=== PATIENT | female | born 1960 | race Caucasian/White ===

== ENCOUNTER 2016-08-07 09:51 | Emergency (ER) | payer MEDICAID ==
[~2016-08-07] VITALS: Ht 172.7 cm; Wt 80.8 kg
[~2016-08-07 09:51] MED LIST: ASPI-496 PO; ATOR80TA PO; LEVO112T2 PO; LISI-167 PO; METO50TA82 PO
[2016-08-07] MEDS ORDERED: MECLIZINE CHEWABLE 25 MG TAB ONE (11:18)
[2016-08-07] MEDS ORDERED: SODIUM CHLORIDE 0.9% 1,000ML IVBOLUS ONE (11:30)
[2016-08-07] MEDS ORDERED: MECLIZINE CHEWABLE 25 MG TAB PO ONE (11:30)
[2016-08-07] MEDS ORDERED: SODIUM CHLORIDE FLUSH 10ML SYR IVF ONE (11:30)
[2016-08-07 11:49] LABS: BLOOD UREA NITROGEN 15 mg/dL (7-18)
[2016-08-07 13:02] VITALS: BP 121/61
== END 2016-08-07 13:05 | disposition home or self-care (01) ==
LOC: ED 11:16
DX: M71.21 Synovial cyst of popliteal space [Baker], right knee (principal); R42 Dizziness and giddiness; I10 Essential (primary) hypertension; I48.91 Unspecified atrial fibrillation; F17.200 Nicotine dependence, unspecified, uncomplicated
CPT/HCPCS: 36415; 80048; 81003; 82040; 85025; 93005; 93971; 96360; 99285; J7030

== ENCOUNTER 2016-09-23 12:38 | Emergency (ER) | payer MEDICAID ==
[~2016-09-23] VITALS: Ht 172.7 cm; Wt 79.8 kg
[2016-09-23 12:40] VITALS: BP 111/65
[2016-09-23] MEDS ORDERED: IBUPROFEN 200 MG TABLET PO ONE (13:00)
[2016-09-23] MEDS ORDERED: IBUPROFEN 200 MG TABLET ONE (13:50)
[2016-09-23] MEDS ORDERED: HYDROcodone/APAP 5/325 TABLET PO ONE (14:30)
[2016-09-23] MEDS ORDERED: HYDROcodone/APAP 5/325 TABLET ONE (14:42)
== END 2016-09-23 15:19 | disposition home or self-care (01) ==
LOC: ED 14:35
DX: S22.41XA Multiple fractures of ribs, right side, initial encounter for closed fracture (principal); I48.91 Unspecified atrial fibrillation; I10 Essential (primary) hypertension; F17.210 Nicotine dependence, cigarettes, uncomplicated; X58.XXXA Exposure to other specified factors, initial encounter; Y93.89 Activity, other specified; Y92.89 Other specified places as the place of occurrence of the external cause; Y99.8 Other external cause status
CPT/HCPCS: 99284

== ENCOUNTER 2017-02-21 13:31 | Emergency (ER) | payer MEDICAID ==
[~2017-02-21] VITALS: Ht 172.7 cm; Wt 78.0 kg
[2017-02-21 14:30] LABS: PATH.CAST-FLAG NOT PRESENT; SPERM-FLAG NOT PRESENT; SRC-FLAG NOT PRESENT; XTAL-FLAG NOT PRESENT; YLC-FLAG NOT PRESENT
[2017-02-21 14:30] LABS: HEMATOCRIT 41.8 % (34.6-47.8); WHITE BLOOD COUNT 6.9 x10^3/uL (3.4-10)
[2017-02-21 14:41] LABS: ASPARTATE AMINO TRANSFERASE 27 U/L (15-37); BLOOD UREA NITROGEN 14 mg/dL (7-18)
[2017-02-21 15:25] VITALS: BP 128/65
== END 2017-02-21 15:27 | disposition home or self-care (01) ==
LOC: ED 14:03
DX: L24.9 Irritant contact dermatitis, unspecified cause (principal); E03.9 Hypothyroidism, unspecified; E78.5 Hyperlipidemia, unspecified; M19.90 Unspecified osteoarthritis, unspecified site; I10 Essential (primary) hypertension; I48.91 Unspecified atrial fibrillation; Z88.1 Allergy status to other antibiotic agents
CPT/HCPCS: 36415; 80053; 81001; 85025; 99283; 99284

== ENCOUNTER → 2017-04-20 | Outpatient (CLI) | payer MEDICAID | END | disposition home or self-care (01) | LOC: CVU 08:24 | PROVIDERS: ATTEND Internal Medicine Cardiovascular Disease | DX: I07.1 Rheumatic tricuspid insufficiency (principal); I10 Essential (primary) hypertension; I48.91 Unspecified atrial fibrillation; F17.200 Nicotine dependence, unspecified, uncomplicated; Z98.890 Other specified postprocedural states | CPT/HCPCS: 93306 ==

== ENCOUNTER 2017-11-09 20:09 | Emergency (ER) | payer MEDICAID ==
[~2017-11-09] VITALS: Ht 172.7 cm; Wt 74.0 kg
[2017-11-09 20:47] LABS: BASOPHILS # (AUTO) 0.11 x10^3/uL (0-0.1); BASOPHILS % (AUTO) 1 % (0-1); EOSINOPHILS # (AUTO) 0.14 x10^3/uL (0-0.4); EOSINOPHILS % (AUTO) 1 % (1-7); LYMPHOCYTES # (AUTO) 2.97 x10^3/uL (1-3.4); LYMPHOCYTES % (AUTO) 30 % (22-44); MD NO; MEAN CORPUSCULAR HEMOGLOBIN 28.1 pg (27.0-34.8); MEAN CORPUSCULAR HGB CONC 33.2 g/dL (32.4-35.8); MEAN CORPUSCULAR VOLUME 84.7 fL (80-100); MEAN PLATELET VOLUME 9.4 fL (7.4-10.4); MONOCYTES # (AUTO) 0.77 x10^3/uL (0.2-0.8); MONOCYTES % (AUTO) 8 % (2-9); NEUTROPHILS # (AUTO) 5.91 x10^3/uL (1.8-6.8); NEUTROPHILS % (AUTO) 60 % (42-75); PLATELET COUNT 308 x10^3/uL (130-400); RED BLOOD COUNT 5.09 x10^6/uL (3.82-5.3); RED CELL DISTRIBUTION WIDTH 14.1 % (9.6-15.2)
[2017-11-09 20:57] LABS: ALBUMIN 3.8 g/dL (3.4-5.0); ANION GAP 8 mmol/L (5-15); CALCIUM 9.3 mg/dL (8.5-10.1); CHLORIDE 110 mmol/L (98-107)
[2017-11-09 21:03] LABS: ALANINE AMINOTRANSFERASE 56 U/L (12-78); ALKALINE PHOSPHATASE 172 U/L (45-117); BILIRUBIN,TOTAL 1.6 mg/dL (0.2-1.0); CREATININE 0.93 mg/dL (0.55-1.02); FREE T4 (FREE THYROXINE) 1.64 ng/dL (0.76-1.46); TOTAL PROTEIN 7.5 g/dL (6.4-8.2); TROPONIN I < 0.015 ng/mL (0.000-0.045)
[2017-11-09 21:08] LABS: THYROID STIMULATING HORMONE 0.071 mIU/L (0.358-3.740)
[2017-11-09] MEDS ORDERED: ENOXAPARIN 80 MG/0.8 ML SQ ONE (21:30)
[2017-11-09] MEDS ORDERED: METOPROLOL TARTRATE 50 MG TABLET PO ONE (21:30)
[2017-11-09] MEDS ORDERED: METOPROLOL TARTRATE 25 MG TABLET ONE (21:34)
[2017-11-09] MEDS ORDERED: ENOXAPARIN 80 MG/0.8 ML ONE (21:34)
[2017-11-09 22:25] VITALS: BP 108/61
== END 2017-11-09 22:28 | disposition home or self-care (01) ==
LOC: ED 21:58
DX: I48.2 Chronic atrial fibrillation (principal); E03.9 Hypothyroidism, unspecified; E78.5 Hyperlipidemia, unspecified; I10 Essential (primary) hypertension; M19.90 Unspecified osteoarthritis, unspecified site; F17.210 Nicotine dependence, cigarettes, uncomplicated
CPT/HCPCS: 36415; 71045; 80053; 83735; 84439; 84443; 84484; 85025; 93005; 96372; 99285; J1650

== ENCOUNTER 2019-02-11 09:52 | Emergency (ER) | payer MEDICAID ==
[~2019-02-11] VITALS: Ht 172.7 cm; Wt 76.6 kg
[~2019-02-11 09:52] MED LIST changes: +LISI5TAB7 PO
--- NOTE | 2019-02-11 10:42 | NUR ---
PT TO CT
[2019-02-11 11:10] LABS: BASOPHILS # (AUTO) 0.04 x10^3/uL (0-0.1); BASOPHILS % (AUTO) 1 % (0-1); EOSINOPHILS # (AUTO) 0.08 x10^3/uL (0-0.4); EOSINOPHILS % (AUTO) 1 % (1-7); LYMPHOCYTES # (AUTO) 1.96 x10^3/uL (1-3.4); LYMPHOCYTES % (AUTO) 30 % (22-44); MD NO; MEAN CORPUSCULAR HGB CONC 33.1 g/dL (32.4-35.8); MEAN CORPUSCULAR VOLUME 87.4 fL (80-100); MEAN PLATELET VOLUME 9.3 fL (7.4-10.4); MONOCYTES # (AUTO) 0.45 x10^3/uL (0.2-0.8); MONOCYTES % (AUTO) 7 % (2-9); NEUTROPHILS # (AUTO) 3.95 x10^3/uL (1.8-6.8); NEUTROPHILS % (AUTO) 61 % (42-75); PLATELET COUNT 308 x10^3/uL (130-400); RED BLOOD COUNT 4.55 x10^6/uL (3.82-5.3); RED CELL DISTRIBUTION WIDTH 13.5 % (9.6-15.2)
[2019-02-11 11:17] LABS: MICROSCOPIC NOT IND
[2019-02-11 11:20] LABS: ALANINE AMINOTRANSFERASE 42 U/L (12-78); ALBUMIN 3.4 g/dL (3.4-5.0); ANION GAP 4 mmol/L (5-15); CALCIUM 9.1 mg/dL (8.5-10.1); CHLORIDE 111 mmol/L (98-107); CREATININE 0.73 mg/dL (0.55-1.02)
[2019-02-11 11:25] LABS: ALKALINE PHOSPHATASE 150 U/L (45-117); BILIRUBIN,TOTAL 1.2 mg/dL (0.2-1.0); TOTAL PROTEIN 6.9 g/dL (6.4-8.2); TROPONIN I < 0.015 ng/mL (0.000-0.045)
[2019-02-11 11:26] LABS: CULTURE INDICATED? NO
--- NOTE | 2019-02-11 11:54 | NUR ---
RECEIVED REPORT FROM JHONY PORTER. ASSUMING CARE AT THIS TIME.
--- NOTE | 2019-02-11 11:57 | NUR ---
US AT BEDSIDE. Addendum: 02/11/19 at 1208 by [email or web address] PT RESTING COMFORTABLY ON GURNEY. MEANS
[2019-02-11 12:43] VITALS: BP 116/53
--- NOTE | 2019-02-11 12:43 | NUR ---
PT AMBULATED TO RESTROOM WITH STEADY GAIT. DENIES DIZZINESS AT THIS TIME. PT BACK ON [facility] CONNECTED TO MONITORING.
--- NOTE | 2019-02-11 12:50 | NUR ---
ALL RESULTS ARE BACK AT THIS TIME. CHART UP FOR RECHECK.
--- NOTE | 2019-02-11 13:38 | NUR ---
Patient/Caregiver given discharge instructions and they have confirmed that they understand the instructions. Patient ambulatory with steady gait.
== END 2019-02-11 13:39 | disposition home or self-care (01) ==
LOC: ED 10:27
DX: H81.399 Other peripheral vertigo, unspecified ear (principal); H81.10 Benign paroxysmal vertigo, unspecified ear; I48.91 Unspecified atrial fibrillation; E78.5 Hyperlipidemia, unspecified; I10 Essential (primary) hypertension; E03.9 Hypothyroidism, unspecified; I25.2 Old myocardial infarction; R51 Headache
CPT/HCPCS: 36415; 70450; 71045; 80053; 81003; 83690; 84484; 85025; 93005; 93880; 99284

== ENCOUNTER 2019-03-27 10:09 | Emergency (ER) | payer MEDICAID ==
[~2019-03-27] VITALS: Ht 172.7 cm; Wt 75.6 kg
[2019-03-27 10:16] VITALS: BP 91/60
--- NOTE | 2019-03-27 10:56 | NUR ---
PT BACK FROM RADIOLOGY, PT INSTRUCTED TO PROVIDE CLEAN CATCH UA. PT UP TO BATHROOM WITH STEADY GAIT.
--- NOTE | 2019-03-27 11:05 | NUR ---
PT BACK IN BED, URINE SAMPLE COLLECTED AND SENT.
[2019-03-27 11:12] LABS: MICROSCOPIC NOT IND
[2019-03-27 11:15] LABS: CULTURE INDICATED? NO
== END 2019-03-27 11:49 | disposition home or self-care (01) ==
LOC: ED 11:06
DX: S32.039A Unspecified fracture of third lumbar vertebra, initial encounter for closed fracture (principal); S70.02XA Contusion of left hip, initial encounter; M54.6 Pain in thoracic spine; I10 Essential (primary) hypertension; E03.9 Hypothyroidism, unspecified; E78.5 Hyperlipidemia, unspecified; I48.91 Unspecified atrial fibrillation; M19.90 Unspecified osteoarthritis, unspecified site; F17.200 Nicotine dependence, unspecified, uncomplicated; W10.9XXA Fall (on) (from) unspecified stairs and steps, initial encounter; Y93.89 Activity, other specified; Y92.89 Other specified places as the place of occurrence of the external cause; Y99.8 Other external cause status
CPT/HCPCS: 72072; 72110; 72220; 81003; 99284

== ENCOUNTER 2020-03-20 14:39 | Emergency (ER) | payer MEDICAID ==
[~2020-03-20] VITALS: Ht 172.7 cm; Wt 72.5 kg
--- NOTE | 2020-03-20 15:09 | NUR ---
pt here after getting covid test at [facility], while getting tested "someone there saw something in my neck and told me to go to the hospital to get checked" pt cannot say what it was they saw. pt also states she has had chest pain "it comes and goes for a few months" and a fever and that's why she went to get a covid test. no SOB, cough, n/v, muscle fatigue.
--- NOTE | 2020-03-20 15:22 | NUR ---
provider at bedside.
[2020-03-20] MEDS ORDERED: ASPIRIN 81 MG TABLET CHEW ONE (15:38)
[2020-03-20] MEDS ORDERED: ASPIRIN 81 MG TABLET CHEW PO ONE (16:00)
[2020-03-20 16:02] LABS: ANION GAP 4 mmol/L (5-15); CALCIUM 10.1 mg/dL (8.5-10.1); CHLORIDE 109 mmol/L (98-107)
[2020-03-20 16:07] LABS: BASOPHILS % (AUTO) 1 % (0-1); EOSINOPHILS % (AUTO) 1 % (1-7); LYMPHOCYTES % (AUTO) 27 % (22-44); MEAN CORPUSCULAR HEMOGLOBIN 28.4 pg (27.0-34.8); MEAN CORPUSCULAR HGB CONC 33.7 g/dL (32.4-35.8); MONOCYTES % (AUTO) 7 % (2-9); NEUTROPHILS % (AUTO) 65 % (42-75); PLATELET COUNT 273 x10^3/uL (130-400); RED BLOOD COUNT 4.72 x10^6/uL (3.82-5.3); RED CELL DISTRIBUTION WIDTH 12.9 % (9.6-15.2)
[2020-03-20 16:08] LABS: ALANINE AMINOTRANSFERASE 32 U/L (12-78); ALKALINE PHOSPHATASE 163 U/L (45-117); BILIRUBIN,TOTAL 2.1 mg/dL (0.2-1.0); CREATININE 0.88 mg/dL (0.55-1.02); FREE T4 (FREE THYROXINE) 1.42 ng/dL (0.76-1.46); TOTAL PROTEIN 7.8 g/dL (6.4-8.2); TROPONIN I < 0.015 ng/mL (0.000-0.045)
[2020-03-20 16:09] LABS: MD NO
[2020-03-20 16:50] VITALS: BP 164/75
== END 2020-03-20 17:35 | disposition home or self-care (01) ==
LOC: ED 17:32
DX: S16.1XXA Strain of muscle, fascia and tendon at neck level, initial encounter (principal); R07.89 Other chest pain; E78.5 Hyperlipidemia, unspecified; I10 Essential (primary) hypertension; E03.9 Hypothyroidism, unspecified; I48.91 Unspecified atrial fibrillation; I45.10 Unspecified right bundle-branch block; F17.210 Nicotine dependence, cigarettes, uncomplicated; X58.XXXA Exposure to other specified factors, initial encounter; Y93.89 Activity, other specified; Y92.89 Other specified places as the place of occurrence of the external cause; Y99.8 Other external cause status
CPT/HCPCS: 36415; 71045; 80053; 84439; 84443; 84484; 85025; 93005; 99285; 99406

== ENCOUNTER 2020-05-23 10:34 | Emergency (ER) | payer MEDICAID ==
[~2020-05-23] VITALS: Ht 172.7 cm; Wt 73.1 kg
--- NOTE | 2020-05-23 10:56 | NUR ---
"I DONT FEEL WELL AT ALL. MY SHOULDER HURTS AND IT FEELS LIKE SOMETHING IS GOING THROUGH MY VEINS. I NOTICED IT HURTING A FEW DAYS AGO, MAYBE THREE OR FOUR DAYS" SWELLING NOTED TO Aydee MCARTHUR. DENIES TRAUMA. C/O PAIN TO [facility]. STATES SHE WAS FEELING DIZZY AND WAS SPINNING THREE DAYS AGO.
[2020-05-23] MEDS ORDERED: MECLIZINE CHEWABLE 25 MG TAB ONE (11:13)
[2020-05-23] MEDS ORDERED: ONDANSETRON ODT 8 MG ONE (11:13)
--- NOTE | 2020-05-23 11:17 | NUR ---
pt taken to ct
[2020-05-23] MEDS ORDERED: ONDANSETRON 2MG/ML, 2ML IVPush ONE (11:30)
[2020-05-23] MEDS ORDERED: SODIUM CHLORIDE FLUSH 10ML SYR IVF ONE (11:30)
[2020-05-23] MEDS ORDERED: MECLIZINE CHEWABLE 25 MG TAB PO ONE (11:30)
[2020-05-23 11:37] LABS: ALBUMIN 4.1 g/dL (3.4-5.0); ANION GAP 8 mmol/L (5-15); CALCIUM 10.1 mg/dL (8.5-10.1); CHLORIDE 110 mmol/L (98-107); CREATININE 0.97 mg/dL (0.55-1.02)
[2020-05-23 11:41] LABS: TROPONIN I < 0.015 ng/mL (0.000-0.045)
--- NOTE | 2020-05-23 11:42 | NUR ---
PT RETURNS FROM IMAGING
[2020-05-23 11:54] LABS: BASOPHILS % (AUTO) 1 % (0-1); EOSINOPHILS % (AUTO) 2 % (1-7); LYMPHOCYTES % (AUTO) 31 % (22-44); MD NO; MEAN CORPUSCULAR HEMOGLOBIN 28.1 pg (27.0-34.8); MEAN CORPUSCULAR HGB CONC 33.3 g/dL (32.4-35.8); MEAN PLATELET VOLUME 9.3 fL (7.4-10.4); MONOCYTES % (AUTO) 8 % (2-9); NEUTROPHILS % (AUTO) 58 % (42-75); PLATELET COUNT 313 x10^3/uL (130-400); RED BLOOD COUNT 4.79 x10^6/uL (3.82-5.3); RED CELL DISTRIBUTION WIDTH 13.5 % (9.6-15.2)
[2020-05-23] MEDS ORDERED: SODIUM CHLORIDE 0.9% 1,000ML IVBOLUS ONE (12:30)
[2020-05-23 12:31] VITALS: BP 137/81
--- NOTE | 2020-05-23 12:31 | NUR ---
BREAK RN: PT UPRIGHT ON GURNEY AWAKE & COMFORTABLE, RESPONDS APPROP TO STAFF, NAD, COMFORT MEASURES PROVIDED, CALL LIGHT WITHIN REACH.
[2020-05-23 13:26] LABS: MICROSCOPIC NOT IND
== END 2020-05-23 14:29 | disposition home or self-care (01) ==
LOC: ED 11:46
DX: R42 Dizziness and giddiness (principal); R51.9 Headache, unspecified; R11.10 Vomiting, unspecified; Z86.59 Personal history of other mental and behavioral disorders; F17.210 Nicotine dependence, cigarettes, uncomplicated; E78.5 Hyperlipidemia, unspecified; E03.9 Hypothyroidism, unspecified
CPT/HCPCS: 36415; 70450; 73000; 80048; 81003; 82040; 84484; 85025; 93005; 96361; 96374; 99285; J2405; J7030